=== PATIENT | female | born 1950 | race Caucasian/White ===

== ENCOUNTER → 2020-11-14 | Outpatient (CLI) | payer MEDICARE, OTHER ==
[~2020-11-14] VITALS: Ht 167.6 cm; Wt 104.3 kg
== END ==
LOC: COL.RAD 10:20
DX: I70.1 Atherosclerosis of renal artery (principal)
CPT/HCPCS: A9562; J1940

== ENCOUNTER → 2020-11-17 | Outpatient (CLI) | payer MEDICARE, OTHER | LOC: COL.RAD 11:30 | DX: I70.1 Atherosclerosis of renal artery (principal) | CPT/HCPCS: A9562; J1940 ==